=== PATIENT | female | born 1985 | race Caucasian/White ===

== ENCOUNTER 2018-01-16 21:26 | Emergency (ER) | payer OTHER, SELFPAY ==
[2018-01-16 21:30] VITALS: BP 115/80; PULSE 90; RESP 18; TEMP 36.4; O2SAT 99; BMI 24.0
== END 2018-01-16 22:00 | disposition left against medical advice (07) ==
LOC: ED 21:46
DX: W55.01XA Bitten by cat, initial encounter (principal)
CPT/HCPCS: 99281; 99282